=== PATIENT | male | born 1985 | race Two or more races ===

== ENCOUNTER 2017-03-20 23:02 | Emergency (ER) | payer SELFPAY ==
[~2017-03-20] VITALS: Ht 172.7 cm; Wt 81.6 kg
--- NOTE | 2017-03-20 23:05 | NUR ---
PT TO ER BED 6. PT BIB [facility]. PER EMS PT HAD A WITNESSED SEIZURE IN HALF-WAY X 30MIN AGO. PT PLACED ON FLOOR COVERING INSTALLER. VSS/RESP EVEN UNLABORED/NAD NOTED/SKIN WARM AND DRY/DENIES N-V-D/AOX4. AWAITING MD CUMMINS.
[2017-03-20] MEDS ORDERED: LORAZEPAM INJ 2 MG/ML VIAL ONE (23:12)
[2017-03-20] MEDS ORDERED: LORAZEPAM INJ 2 MG/ML VIAL IM ONE (23:30)
--- NOTE | 2017-03-20 23:50 | NUR ---
REFERRED TO [facility] - THE PATIENT HAS [facility]
[2017-03-20 23:54] VITALS: BP 138/79
--- NOTE | 2017-03-20 23:54 | NUR ---
Patient discharged in custody of [employer] #[id number] for "ok to book" in stable condition. Written and verbal after care instructions given. Patient verbalizes understanding of instruction. Patient ambulatory with a steady gait.
== END 2017-03-20 23:55 | disposition home or self-care (01) ==
LOC: ER 23:06
DX: G40.909 Epilepsy, unspecified, not intractable, without status epilepticus (principal)
CPT/HCPCS: 82962; 99283; A4606; J2060; Z7610

== ENCOUNTER 2017-07-04 07:56 | Emergency (ER) | payer OTHER ==
[~2017-07-04] VITALS: Ht 170.2 cm; Wt 79.4 kg
--- NOTE | 2017-07-04 07:58 | NUR ---
[facility] IN CUSTODY C/O SEIZURE X1 LAST NIGHT AND X1 THIS AM. PATIENT WAS GIVEN DEPAKOTE LAST NIGHT. POST-ICTAL AT THE MOMENT. NO TRAUMA. SKIN IS WARM AND DRY. RESP IS EVEN AND UNLABORED WITH NAD NOTED. SEIZURE PRECAUTION IS IN PLACE. PLACED ON THE MONITOR. DR ROSEN AT FOR EVAL.
--- NOTE | 2017-07-04 08:16 | NUR ---
PATIENT REFUSED IV, DR ROSEN MADE AWARE.
--- NOTE | 2017-07-04 08:27 | NUR ---
Patient does not wish to proceed with medical care recommended by . Patient given information related to possible complications, up to and including , which could occur as a result of leaving the hospital at this time. Patient verbalizes understanding of risks involved due to leaving against medical advice. Patient refused to sign AMA form.
--- NOTE | 2017-07-04 08:29 | NUR ---
Pt is alert and oriented, refusing to cooperate with treatment and is refusing to sign AMA form. made aware
--- NOTE | 2017-07-04 08:39 | NUR ---
Patient discharged to [employer] IN CUSTODY in stable condition. Written and verbal after care instructions given. Patient and [employer] verbalized understanding of instruction.
[2017-07-04 08:43] VITALS: BP 142/94
== END 2017-07-04 08:46 | disposition left against medical advice (07) ==
LOC: ER 07:59
DX: R56.9 Unspecified convulsions (principal); Z53.20 Procedure and treatment not carried out because of patient's decision for unspecified reasons
CPT/HCPCS: A4606; Z7610